=== PATIENT | male | born 1995 | race Caucasian/White ===

== ENCOUNTER 2017-03-09 16:41 | Emergency (ER) | payer BC, OTHER ==
[2017-03-09 16:48] VITALS: RESP 16
[2017-03-09] MEDS ORDERED: RABIES VACC, HUMAN DIPLOID/PF 2.5 UNIT VIAL (RABAVERT) IM ONE (17:39)
[2017-03-09] MEDS ORDERED: RABIES IMMUNE GLOBULIN 300 UNIT/2 ML VIAL IM ONE (17:46)
--- NOTE | 2017-03-09 18:03 | EDPHY ---
H & P Time Seen by Provider: 03/09/17 17:59 HPI/ROS: HPI: This is a 22-year-old male who presents with Chief Complaint: Bat bite to right big toe Location: Right great toe Quality: Bat bite Duration: Sunday evening Signs and Symptoms: No bleeding, no redness, no warmth, no discharge, no radiation, no weakness Timing: Sudden Severity:mild Context: Patient was in his bed sleeping Sunday evening, 4 days ago, without any socks on and felt something touch his right big toe. He opens eyes and saw a bat in his room. He did not see any bite erin or bleeding from the area on his toe. He was home alone the evening. The next day his roommate saw about fly down the fireplace. They caught it, killed it and now it is being tested. Reports that he is up-to-date on his tetanus. He reports his primary care provider is in [place]. Modifying Factors: Comment: ROS: Eyes: No blurred vision Respiratory: No shortness of breath, no cough Cardiovascular: No chest pain Gastrointestinal: No nausea, no vomiting no diarrhea Genitourinary: No dysuria Extremities: No myalgias Neurologic: No weakness, no numbness Skin: No rashes Hematologic: No bruising, no bleeding MEDICAL/SURGICAL HISTORY: Generally healthy. Denies any surgical history. Social History: Currently enrolled in college. Smoking Status: Former smoker Physical Exam: CONSTITUTIONAL: Extremely well-appearing young adult white male, awake and alert, no obvious distress HEENT: Atraumatic and normocephalic, PERRL, EOMI. Tympanic membranes clear. . Oropharynx clear, no exudate and moist pink mucosa. Airway patent. No lymphadenopathy. No meningismus. Cardiovascular: Normal S1/S2, regular rate, regular rhythm, without murmur rub or gallop. PULMONARY/CHEST: Symmetrical and nontender. Clear to auscultation bilaterally Good air movement. No accessory muscle usage. ABDOMEN: Soft, nondistended, nontender, no rebound, no guarding, no peritoneal signs, no masses or organomegaly. No CVAT. EXTREMITIES: 2/2 pulses, no deformities, no clubbing, no cyanosis or edema. Right great toe shows no erythema, warmth; flexion/extension intact. No areas of broken skin appreciated. NEUROLOGICAL: no focal neuro deficits. GCS 15. SKIN: Warm and dry, no erythema. no rash. Good capillary refill. Constitutional: Initial Vital Signs Temperature (C) 36.3 C 03/09/17 16:45 Heart Rate 72 03/09/17 16:45 Respiratory Rate 16 03/09/17 16:45 Blood Pressure 105/74 03/09/17 16:45 O2 Sat (%) 95 03/09/17 16:45 O2 Delivery Mode Room Air Allergies/Adverse Reactions: No Known Allergies Allergy (Verified 03/09/17 16:45) Home Medications: Medication Instructions Recorded NK [No Known Home Meds] 03/09/17 Medical Decision Making ED Course/Re-evaluation: Rabies immunoglobulin and rabies vaccine post exposure prophylaxis given. No local wound care indicated as no signs of cellulitis, abscess. no signs of neurovascular compromise. Differential Diagnosis: Differential includes cellulitis, abscess, rabies. Departure - Departure Disposition: Home, Routine, Self-Care Clinical Impression: Rabies exposure Condition: Good Instructions: Rabies Vaccine (By injection), Rabies Immune Globulin (By injection), Rabies (ED), Rabies Vaccine (ED) Additional Instructions: You will need to continue the post exposure rabies vaccine series. Your given your 1st vaccine prophylaxis today in her neck shot will be in 3 days (March 12), 7 days (Mar 16)and the last one on the 14th day (March 23). You may follow up with her primary care provider to complete the series or the local infectious disease clinic with Dr. Annemarie Ojeda. Referrals: CHARLY GIL [Other] - 03/12/17 Annemarie Ojeda MD [Medical Doctor] - As per Instructions
[2017-03-09 19:02] VITALS: BP 116/65; PULSE 68; TEMP 97.7; O2SAT 98
== END 2017-03-09 19:02 | disposition home or self-care (01) ==
DX: Z20.3 Contact with and (suspected) exposure to rabies (principal); Z23 Encounter for immunization; Z87.891 Personal history of nicotine dependence